=== PATIENT | male | born 1960 | race Two or more races ===

== ENCOUNTER 2022-05-09 09:52 | Emergency (ER) | payer OTHER ==
[~2022-05-09] VITALS: Ht 177.8 cm; Wt 98.4 kg
[2022-05-09] MEDS ORDERED: KEPPRA500 MG (10:22)
[2022-05-09] MEDS ORDERED: DILANTIN100 MG (10:22)
[2022-05-09] MEDS ORDERED: ATIVAN2 M1 PO (16:25)
== END 2022-05-09 18:24 ==
LOC: ER 09:52
DX: G40.209 Localization-related (focal) (partial) symptomatic epilepsy and epileptic syndromes with complex partial seizures, not intractable, without status epilepticus (principal); F10.20 Alcohol dependence, uncomplicated; Z88.0 Allergy status to penicillin; Z20.822 Contact with and (suspected) exposure to COVID-19